=== PATIENT | male | born 1985 | race Caucasian/White ===

== ENCOUNTER 2018-01-08 12:14 | Inpatient (IN) | payer OTHER ==
[~2018-01-08] VITALS: Ht 177.8 cm; Wt 99.8 kg
[2018-01-08] MEDS ORDERED: HYDROMORPHONE 1 MG/1 ML DISP.SYRIN IV ONE ×2 (13:00→18:30)
[2018-01-08] MEDS ORDERED: diphenhydrAMINE 50 MG/1 ML VIAL IV ONE (13:00)
[2018-01-08] MEDS ORDERED: HYDROMORPHONE 2 MG/1 ML DISP.SYRIN ONE ×2 (13:04→18:38)
[2018-01-08] MEDS ORDERED: diphenhydrAMINE 50 MG/1 ML VIAL ONE (13:04)
--- NOTE | 2018-01-08 13:10 | NUR ---
PT VOIDED IN THE URINAL.
--- NOTE | 2018-01-08 13:13 | NUR ---
MRI APPROVED BY DR. AGUIRRE
--- NOTE | 2018-01-08 13:25 | NUR ---
ARRANGED TRANSFER TO [facility]IA [facility] FOR 1400. MRI TIME AT 1500 PER ROBERTO.
--- NOTE | 2018-01-08 14:10 | NUR ---
PT TRANSFERED TO [facility] FOR MRI.
--- NOTE | 2018-01-08 15:48 | NUR ---
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
--- NOTE | 2018-01-08 18:23 | NUR ---
PT CAME BACK FROM [facility]. PT RETAINING URINE AND UNABLE TO URINATE WHILE AT [facility]. MD NOTIFIED.
[2018-01-08 18:34] LABS: *BILIRUBIN,URIN NEGATIVE (NEGATIVE); *BLOOD, URINE NEGATIVE (NEGATIVE); *CLARITY,URINE CLEAR (CLEAR); *COLOR,URINE YELLOW (YELLOW); *KETONES,URINE NEGATIVE (NEGATIVE); *PROTEIN,URINE NEGATIVE (NEGATIVE); LEUKOCYTE ESTERASE ,URINE NEGATIVE (NEGATIVE); NITRITE, URINE NEGATIVE (NEGATIVE); PH,URINE 7.5 (5.0-8.0); UGLUCOSE NEGATIVE (NEGATIVE)
[2018-01-08 18:40] LABS: MUCUS,URINE FEW /LPF (0-FEW); RBC,URINE 0-3 /HPF (0-3); WBC,URINE 0-3 /HPF (0-3)
[2018-01-08] MEDS ORDERED: FLEXERIL (18:57)
[2018-01-08] MEDS ORDERED: NORCO (18:57)
--- NOTE | 2018-01-08 19:00 | NUR ---
PT TALKING OVER THE PHONE, NO SIGN OF DISTRESS AT THIS POINT.
--- NOTE | 2018-01-08 19:16 | NUR ---
HANDS OFF REPORT GIVEN TO CHE MORALES.
[2018-01-08] MEDS ORDERED: DEXAMETHASONE SOD PHOSPHATE 4 MG INJ IM ONE (19:30)
[2018-01-08] MEDS ORDERED: DEXAMETHASONE SOD PHOSPHATE 10 MG INJ ONE (19:39)
--- NOTE | 2018-01-08 19:42 | NUR ---
DR WHEELER SPOKE DR DAI FOR CONSULT
--- NOTE | 2018-01-08 19:48 | NUR ---
PAGED DR PIERRE PANEL. WAITING FOR [facility] LEVEL VIAL INSIDE GRINDER TO CALL BACK
--- NOTE | 2018-01-08 19:52 | NUR ---
Call received from Dr. Riggs (UROLOGY), who stated that he does not cover emergency room or new admission patients. ERMD notified.
--- NOTE | 2018-01-08 19:55 | NUR ---
DR WHEELER SPOKE TO ORACIO SCREEN PRINTING PRESS OPERATOR FOR ADMISSION
--- NOTE | 2018-01-08 20:45 | NUR ---
TRANSFERED TO 2ND FLOOR TELE
--- NOTE | 2018-01-08 20:50 | NUR ---
RECEIVED PT TO TELE FLOOR, BELONGINGS WITH PT. ORIENTED TO UNIT AND USE OF CALL LIGHT. ALERT AND ORIENTED X4. PARKER CATHETER INTACT. COMPLAINING OF LOW BACK PAIN AND TINGLING LEGS.
[2018-01-08 20:55] VITALS: BP 130/72
[2018-01-08] MEDS ORDERED: HYDROMORPHONE 1 MG/1 ML DISP.SYRIN IV PRN (21:45)
[2018-01-08] MEDS ORDERED: HYDROCODONE/APAP 5-325MG TABLET PO PRN (21:45)
[2018-01-08] MEDS ORDERED: ONDANSETRON 4 MG/2 ML VIAL IV PRN (21:45)
[2018-01-08] MEDS ORDERED: ACETAMINOPHEN 325 MG TABLET PO PRN (21:45)
[2018-01-08] MEDS ORDERED: MAGNESIUM HYDROXIDE 30 ML LIQUID UDC PO PRN (21:45)
[2018-01-08] MEDS: ZOLPIDEM 5 MG TABLET PO PRN (21:55)
[2018-01-08] MEDS: DEXAMETHASONE SOD PHOSPHATE 10 MG INJ IV SCH (22:00)
--- NOTE | 2018-01-08 23:18 | NUR ---
2200 DECADRON NOT GIVEN SINCE IT WAS LAST GIVEN IN THE ER AND THE TIME IS TOO CLOSE TO THE LAST DOSE.
[2018-01-08] MEDS: HYDROMORPHONE 2 MG/1 ML DISP.SYRIN IV PRN (23:22)
[2018-01-08] MEDS: IV NS 1000 ML 1,000 ML IV PRN (23:24)
[2018-01-09] VITALS: BP 127/68
[2018-01-09] MEDS: HYDROMORPHONE 2 MG/1 ML DISP.SYRIN IV PRN ×5 (03:10→22:55)
[2018-01-09 04:00] VITALS: BP 123/72
[2018-01-09 07:00] LABS: BASOPHILS % (AUTO) 0.1 % (0.0-2.0); HEMATOCRIT 42.6 % (36.7-47.1); HEMOGLOBIN 14.5 g/dL (12.5-16.3); LYMPHOCYTES # (AUTO) 1.3 K/uL (20.0-40.0); LYMPHOCYTES % (AUTO) 11.7 % (20.5-51.5); MEAN CORPUSCULAR HEMOGLOBIN 30.1 uug (23.8-33.4); MEAN CORPUSCULAR HGB CONC 34 g/dL (32.5-36.3); MEAN CORPUSCULAR VOLUME 88.7 fL (73.0-96.2); MONOCYTES # (AUTO) 0.7 K/uL (2.0-10.0); MONOCYTES % (AUTO) 6.5 % (0.0-11.0); NEUTROPHILS # (AUTO) 9.1 K/uL (1.8-8.9); NEUTROPHILS % (AUTO) 81.7 % (38.5-71.5); PLATELET COUNT (AUTO) 277 K/uL (152-348); WHITE BLOOD COUNT (AUTO) 11.2 K/uL (3.6-10.2)
[2018-01-09 07:05] LABS: CREATININE 0.8 mg/dL (0.6-1.3); MAGNESIUM 2.2 mg/dL (1.8-2.4); PHOSPHOROUS 3.6 mg/dL (2.5-4.9); POTASSIUM 4.9 mmol/L (3.5-5.1)
--- NOTE | 2018-01-09 08:00 | NUR ---
AWAKE ALERT COOPERATE WELL C/O OF LEE LEG AND BACK PAIN MED PRN GIVEN THIS AM ,CONTINUE IVF INFUSION WELL ,F/C INPLACE URINE FLOW CLEAR MARK MOD AMT NO BLADDER DISCONFORT RESTING WITH CALL DEVRIES IN REACH
[2018-01-09] MEDS: DEXAMETHASONE SOD PHOSPHATE 10 MG INJ IV SCH ×3 (09:02→21:38)
[2018-01-09] MEDS: ENOXAPARIN SODIUM 40 MG/0.4 ML DISP.SYRIN SQ SCH (09:04)
[2018-01-09] MEDS: IV NS 1000 ML 1,000 ML IV PRN (09:26)
[2018-01-09 12:21] VITALS: BP 117/58
--- NOTE | 2018-01-09 13:00 | NUR ---
C/O OF LEE LEG PAIN MEDICATION DILAUDID PRN GIVEN ORDER
--- NOTE | 2018-01-09 13:30 | NUR ---
PAIN RELEFT RESTING WELL STATE FEEL BETTER
[2018-01-09 15:47] VITALS: BP 109/61
--- NOTE | 2018-01-09 18:00 | NUR ---
TO CAT SCAN ABD VIA BED
--- NOTE | 2018-01-09 18:30 | NUR ---
BACK TO ROOM HEMODYNAMIC STATUS STABLE PAIN UNDER CONTROL NO ACUTE DISTRESS SAFETY MEASURE PROVIDED CALL LIGHT IN REACH
[2018-01-09 19:33] VITALS: BP 105/53
--- NOTE | 2018-01-09 20:00 | NUR ---
PATIENT IS AWAKE IN BED WATCHING TV, AAOX4. DENIES PAIN ON ASSESSMENT. NO ACUTE DISTRESS AT PRESENT. F/C INTACT, PATENT & DRAINING TO GRAVITY. SAFETY MEASURES IN PLACE, CALL LIGHT LEFT WITHIN PATIENT'S REACH. WILL CONTINUE TO MONITOR PATIENT
[2018-01-09] MEDS: ZOLPIDEM 5 MG TABLET PO PRN (22:55)
[2018-01-10 03:43] VITALS: BP 120/71
[2018-01-10] MEDS: IV NS 1000 ML 1,000 ML IV PRN ×2 (05:49→21:26)
[2018-01-10] MEDS: DEXAMETHASONE SOD PHOSPHATE 10 MG INJ IV SCH ×3 (05:49→21:05)
--- NOTE | 2018-01-10 06:08 | NUR ---
PATIENT IS WAKE, SLEPT WELL THROUGHOUT THE SHIFT. SLEEPING PILLS AND PAIN MEDS GIVEN REQUESTED BY PATIENT. F/C INTACT AND PATENT DRAINING YELLOW URINE. NO ACUTE DISTRESS, NO SIGNIFICANT CHANGES IN STATUS. SAFETY MEASURES MAINTAINED AT ALL TIMES
--- NOTE | 2018-01-10 08:00 | NUR ---
AWAKE ALERT COOPERATE WELL NO ACUTE DISTRESS PAIN UNDER CONTROL CONTINUE IVF RESTING WELL WITH CALL LIGHT IN REACH
[2018-01-10] MEDS ORDERED: SENNOSIDES 1 TABLET PO ONE (08:15)
[2018-01-10] MEDS: ENOXAPARIN SODIUM 40 MG/0.4 ML DISP.SYRIN SQ SCH (09:06)
[2018-01-10] MEDS: DOCUSATE SODIUM 100 MG CAPSULE PO SCH ×2 (09:07→20:21)
[2018-01-10] MEDS: HYDROMORPHONE 2 MG/1 ML DISP.SYRIN IV PRN ×3 (09:19→20:25)
--- NOTE | 2018-01-10 09:30 | NUR ---
DR VELOZ SEEN PATIENT THIS AM AND LAXATIVE AND PAIN MED GIVEN REQUEST
[2018-01-10] MEDS ORDERED: MAGNESIUM HYDROXIDE 30 ML LIQUID UDC PO ONE (11:15)
[2018-01-10 11:31] VITALS: BP 115/65
[2018-01-10] MEDS: GABAPENTIN 100 MG CAPSULE PO SCH ×2 (12:35→16:58)
--- NOTE | 2018-01-10 13:30 | NUR ---
F/C DISCONTINUE ORDER 1000ML OUT AT THIS TIME ASSIST TO USE BRP STATE POSS MAY HAVE BM AND WANT TO TRY STILL WEAK BOTH LEG BUT MORE STRONGER THAN YESTERDAY
[2018-01-10] MEDS ORDERED: CYCL10TA9 PO (13:47)
[2018-01-10] MEDS ORDERED: HYDR-548 PO (13:47)
--- NOTE | 2018-01-10 14:00 | NUR ---
HAVING 1 BM SOFT MOD AMT STATE FEEL BETTER
[2018-01-10] MEDS ORDERED: CYCLOBENZAPRINE HCL 10 MG TABLET PO PRN (14:30)
[2018-01-10 15:28] VITALS: BP 121/72
--- NOTE | 2018-01-10 17:30 | NUR ---
STABLE HEMODYNAMIC STATUS ,PAIN UNDER CONTROL NO VOID YET SINCE F/C OUT THIS AFTERNOON SAFETY MEASURE PROVIDED CALL LIGHT IN REACH
--- NOTE | 2018-01-10 19:40 | NUR ---
Received pt lying in bed. AAOX4. Family at bedside. In no acute distress. VS WNL. IV on right hand intact and patent. IVF infusing. Safety measure initiated and call leung within reach.
[2018-01-10 20:19] VITALS: BP 123/72
[2018-01-10] MEDS ORDERED: DEXAMETHASONE SOD PHOSPHATE 10 MG INJ ONE (20:53)
[2018-01-11] MEDS: DEXAMETHASONE SOD PHOSPHATE 10 MG INJ IV SCH ×3 (05:13→21:15)
[2018-01-11] MEDS: HYDROMORPHONE 2 MG/1 ML DISP.SYRIN IV PRN ×5 (05:24→21:34)
[2018-01-11 06:14] LABS: BASOPHILS % (AUTO) 0.1 % (0.0-2.0); HEMATOCRIT 41.1 % (36.7-47.1); HEMOGLOBIN 14.1 g/dL (12.5-16.3); LYMPHOCYTES # (AUTO) 2.5 K/uL (20.0-40.0); LYMPHOCYTES % (AUTO) 14.1 % (20.5-51.5); MEAN CORPUSCULAR HEMOGLOBIN 30.4 uug (23.8-33.4); MEAN CORPUSCULAR HGB CONC 34 g/dL (32.5-36.3); MEAN CORPUSCULAR VOLUME 88.5 fL (73.0-96.2); MONOCYTES # (AUTO) 1.4 K/uL (2.0-10.0); MONOCYTES % (AUTO) 8.3 % (0.0-11.0); NEUTROPHILS # (AUTO) 13.6 K/uL (1.8-8.9); NEUTROPHILS % (AUTO) 77.5 % (38.5-71.5); PLATELET COUNT (AUTO) 320 K/uL (152-348); RED BLOOD CELL COUNT(AUTO) 4.64 MIL/uL (4.06-5.63); WHITE BLOOD COUNT (AUTO) 17.5 K/uL (3.6-10.2)
--- NOTE | 2018-01-11 06:17 | NUR ---
Patient AAOX4. IV on right hand remains intact and patent. IVF infusing. Able to urinate freely using urinal. In no acute distress. Needs attended to and met. Safety measure maintained and call leung within reach.
[2018-01-11 06:29] VITALS: BP 115/88
[2018-01-11 06:30] LABS: CREATININE 0.8 mg/dL (0.6-1.3); PHOSPHOROUS 3.3 mg/dL (2.5-4.9)
--- NOTE | 2018-01-11 07:35 | NUR ---
Rec'd pt in bed, awake, A&O x4. Pt admitted for urinary retention and recent back injury that is progressively worsening to difficulty walking. Will be evaluated by PT today. Pt on RA, no SOB noted. Left hand 20g IV site connected to NS @75ml/hr for hydration. Lower back pain managed with Dilaudid PRN. All needs met at this time. Call light within reach. Will monitor closely.
[2018-01-11 08:27] VITALS: BP 139/79
[2018-01-11] MEDS: GABAPENTIN 100 MG CAPSULE PO SCH ×3 (08:28→17:37)
[2018-01-11] MEDS: DOCUSATE SODIUM 100 MG CAPSULE PO SCH ×2 (08:28→21:15)
[2018-01-11] MEDS: ENOXAPARIN SODIUM 40 MG/0.4 ML DISP.SYRIN SQ SCH (08:29)
--- NOTE | 2018-01-11 10:50 | NUR ---
Pt left hospital via gurney accompanied by x2 [facility] staff for a TSpine MRI at [facility]. Left in fair condition. Endorsed to [facility] staff.
--- NOTE | 2018-01-11 13:20 | NUR ---
Pt back from MRI appt. In fair condition. C/O 8/10 lower back pain, will administer Dilaudid IV PRN. Per pt, he tolerated the procedure well.
--- NOTE | 2018-01-11 13:50 | NUR ---
Dr Lake in house and relayed pt's positive MRI results. Per Dr. Lake, she is awake and is on her way to talk to the pt at this time.
--- NOTE | 2018-01-11 13:53 | NUR ---
Rec'd call from Dr. Mejia regarding pt's T-Spine MRI results. Per Dr. Mejia, pt with a mass causing cord compression. Recommendation is a post contrast MRI eval. Will follow up with Dr. Lake and Leni Dunham NP.
--- NOTE | 2018-01-11 13:55 | NUR ---
Seen and examined by Dr. Lake with no new orders at this time.
--- NOTE | 2018-01-11 14:45 | NUR ---
Rec'd call from Leni Dunham NP with new order for pt to be on strict bedrest secondary to the spinal cord compression. Noted and carried out. Pt made aware. Forwarded pt's MRI results to Leni Dunham as requested. Per Leni, she will discuss pt's case with Dr. Mcfadden, neurosurgeon at [facility] [place].
[2018-01-11] MEDS: IV NS 1000 ML 1,000 ML IV PRN (14:54)
[2018-01-11 15:12] VITALS: BP 119/67
[2018-01-11] MEDS ORDERED: DEXA10VI IV (15:42)
[2018-01-11] MEDS ORDERED: GABA-532 PO (15:42)
[2018-01-11] MEDS ORDERED: CYCL10TA9 PO (15:42)
[2018-01-11 20:00] VITALS: BP 127/79
--- NOTE | 2018-01-11 20:54 | NUR ---
Received pt lying in bed. AAOX4. Pain on his neck to back area tolerable at this time. VS WNL. IV on LFA intact and patent. IVF infusing. Safety measure initiated and call leung within reach.
[2018-01-12] MEDS: DEXAMETHASONE SOD PHOSPHATE 10 MG INJ IV SCH ×3 (05:30→13:31)
--- NOTE | 2018-01-12 05:42 | NUR ---
AAOX4. IV on LFA intact and patent. IVF infusing. In no acute distress. On bedrest. VS WNL. Needs attended to and met. Safety measure maintained and call leung within reach.
[2018-01-12 05:56] VITALS: BP 114/75
--- NOTE | 2018-01-12 06:16 | NUR ---
Routine Dexamethasone given at 0530.
[2018-01-12] MEDS: HYDROMORPHONE 2 MG/1 ML DISP.SYRIN IV PRN ×3 (07:37→16:09)
[2018-01-12] MEDS: DOCUSATE SODIUM 100 MG CAPSULE PO SCH (09:00)
[2018-01-12] MEDS: GABAPENTIN 100 MG CAPSULE PO SCH ×3 (09:00→17:08)
[2018-01-12] MEDS: ENOXAPARIN SODIUM 40 MG/0.4 ML DISP.SYRIN SQ SCH (09:04)
--- NOTE | 2018-01-12 09:20 | NUR ---
PT RESTING IN BED. C/O PAIN, PRN DILAUDID ADMINISTERED AT 0737. PT IN STABLE CONDITION WITH CALL LIGHT WITHIN REACH. WILL CONTINUE TO MONITOR.
[2018-01-12 11:45] VITALS: BP 114/60
[2018-01-12 15:28] VITALS: BP 121/74
--- NOTE | 2018-01-12 17:35 | NUR ---
PT REPORT GIVEN TO CHE ZAZUETA AT [facility] AT 1730. PT WILL BE D/C TO HIGHER LEVEL OF CARE. PT STABLE AT THIS TIME, V/S WNL. ALL DUE MEDS WERE ADMINISTERED ORDERED.
--- NOTE | 2018-01-12 18:15 | NUR ---
PT D/C TO [facility] UNDER THE CARE OF 2 EMT'S FROM [facility]. PT LEFT THE FLOOR AT 1800. V/S WNL, ALL BELONGINGS LEFT WITH PT.
== END 2018-01-12 18:00 | disposition short-term general hospital (02) | DRG 40 ==
LOC: ER 12:14 → TELE 20:34 → MED 01-09 11:09
PROVIDERS: ADMIT Nurse Practitioner Acute Care; ATTEND Nurse Practitioner Acute Care
DX: S24.0XXA Concussion and edema of thoracic spinal cord, initial encounter (principal); S34.01XA Concussion and edema of lumbar spinal cord, initial encounter; R20.2 Paresthesia of skin; X50.0XXA Overexertion from strenuous movement or load, initial encounter; Y92.69 Other specified industrial and construction area as the place of occurrence of the external cause; Y99.0 Civilian activity done for income or pay; R33.9 Retention of urine, unspecified; Z74.09 Other reduced mobility
CPT/HCPCS: 36415; 70030-TC; 72148; 83735; 84100; 85025; 87086; A4663; J1100; J1170; J1200; J1650; J7030